=== PATIENT | male | born 1950 | race Caucasian/White ===

== ENCOUNTER 2018-05-23 13:33 | Emergency (ER) | payer OTHER, BC ==
[~2018-05-23] VITALS: Ht 175.3 cm; Wt 83.9 kg
[2018-05-23 13:33] VITALS: BP_SYST 145
--- NOTE | 2018-05-23 13:33 | NUR ---
BROUGHT BACK TO BED #8 AND TRIAGED. REPORT GIVEN TO BARRERA
--- NOTE | 2018-05-23 14:34 | NUR ---
Patient is awake, alert, and oriented x4. Patient states he thought he was having a stroke, numbness and tinglling on the right side of his head. He denies previous medical history. No signs or symptoms of distress noted.
--- NOTE | 2018-05-23 14:45 | NUR ---
ER Dr. Garrido at bedside examining patient.
[2018-05-23 14:49] LABS: BASOPHILS % (AUTO) 1.2 % (0.0-2.0); EOSINOPHILS # (AUTO) 0.1 K/uL (0.0-0.4); EOSINOPHILS % (AUTO) 1.8 % (0.0-4.0); LYMPHOCYTES # (AUTO) 1.2 K/uL (1.0-5.5); LYMPHOCYTES % (AUTO) 30.8 % (20.5-51.5); MEAN CORPUSCULAR HEMOGLOBIN 29 pg (27-31); MEAN CORPUSCULAR HGB CONC 32 % (32-36); MEAN CORPUSCULAR VOLUME 92 fL (79.0-98.0); MONOCYTES # (AUTO) 0.3 K/uL (0.0-1.0); NEUTROPHILS # (AUTO) 2.3 K/uL (1.8-7.7); NEUTROPHILS % (AUTO) 59.2 % (40.0-70.0); PLATELET COUNT (AUTO) 156 K/uL (130-430); RED BLOOD CELL COUNT(AUTO) 4.44 MIL/uL (4.2-6.2); RED CELL DISTRIBUTION WIDTH 12.9 % (9.0-15.0); WHITE BLOOD COUNT (AUTO) 3.9 K/uL (4.8-10.8)
--- NOTE | 2018-05-23 14:54 | NUR ---
Patient transported to radiology via wheelchair, accompanied by kennel technician.
[2018-05-23 14:57] LABS: ANION GAP 4 (5-15); CALCIUM 8.7 mg/dL (8.4-11.0); CHLORIDE 110 mmol/L (98-107); CREATININE 0.89 mg/dL (0.55-1.30); GLUCOSE 124 mg/dL (70-99); POTASSIUM 3.8 mmol/L (3.5-5.1); SODIUM SERUM 142 mmol/L (136-145); UREA NITROGEN, BLOOD 11 mg/dL (8-21)
[2018-05-23 14:58] LABS: PROTHROMBIN TIME 9.9 SECS (9.5-12.5)
[2018-05-23 15:01] LABS: GFR AFRICAN AMERICAN 110 mL/min (>90)
--- NOTE | 2018-05-23 15:01 | NUR ---
Returned from radiology, back to [facility].
--- NOTE | 2018-05-23 15:10 | NUR ---
Assumed care of patient, patient resting quietly in no acute distress. Awaiting results and dispo.
[2018-05-23 15:14] LABS: ALANINE AMINOTRANSFERASE 23 U/L (12-78); ALBUMIN 3.5 g/dL (3.4-4.8); ALCOHOL, BLOOD < 3 mg/dL (<10); ASPARTATE AMINOTRANSFERASE 15 U/L (10-37); FREE T4 (FREE THYROXINE) 0.5 ng/dL (0.6-1.6); TOTAL BILIRUBIN 0.6 mg/dL (0.0-1.0)
[2018-05-23 15:21] LABS: BILIRUBIN,URINE NEGATIVE (NEGATIVE); BLOOD, URINE NEGATIVE (NEGATIVE); CLARITY/URINE CLEAR (CLEAR); COLOR,URINE YELLOW (YELLOW); GLUCOSE,URINE NEGATIVE (NEGATIVE); KETONES,URINE NEGATIVE (NEGATIVE); LEUKOCYTE ESTERASE ,URINE NEGATIVE (NEGATIVE); NITRITE, URINE NEGATIVE (NEGATIVE); PROTEIN URINE NEGATIVE (NEGATIVE); UROBILINOGEN,URINE 0.2 (0.2-1.0)
[2018-05-23 15:32] LABS: BARBITURATE, URINE NEGATIVE (NEG <=200); BENZODIAZEPINE, URINE NEGATIVE (NEG <=150); CANNABINOID, URINE NEGATIVE (NEG <=50); COCAINE, URINE NEGATIVE (NEG <=150); METHAMPHETAMINES SCREEN,URINE NEGATIVE (NEG <=500); OPIATE, URINE NEGATIVE (NEG <=100); PHENCYCLIDINE SCREEN,URINE NEGATIVE (NEG <=25); UR TRICYCLIC ANTIDEPRESSANTS NEGATIVE (NEG <=300); URINE AMPHETAMINE NEGATIVE (NEG <=500); URINE METHADONE NEGATIVE (NEG <=200); URINE OXYCODONE SCREEN NEGATIVE (NEG <=100); URINE PROPOXYPHENE SCREEN NEGATIVE (NEG <=300)
[2018-05-23] MEDS ORDERED: ASPIRIN 81 MG TAB.CHEW PO ONE (15:45)
--- NOTE | 2018-05-23 15:45 | NUR ---
Dr Garrido at bedside speaking with patient/family regarding results and plan of care, questions answered by Dr Garrido.
[2018-05-23] MEDS ORDERED: DIPHENHYDRAMINE HCL 12.5 MG/5 ML UDC PO ONE (16:00)
[2018-05-23 16:14] VITALS: BP_SYST 136
== END 2018-05-23 16:14 | disposition home or self-care (01) ==
LOC: SED 13:33
DX: R20.2 Paresthesia of skin (principal); R03.0 Elevated blood-pressure reading, without diagnosis of hypertension
CPT/HCPCS: 36415; 70450; 71045; 80053; 80307; 81003; 82140; 83605; 83880; 84439; 84484; 85025; 85610; 87040; 93005; 99285; G0482

== ENCOUNTER 2018-11-15 17:21 | Emergency (ER) | payer OTHER, BC ==
[~2018-11-15] VITALS: Ht 175.3 cm; Wt 81.6 kg
[2018-11-15 17:26] VITALS: BP_SYST 138
[2018-11-15] MEDS ORDERED: ASPIRIN 325 MG TABLET PO ONE (18:15)
[2018-11-15] MEDS: NITROGLYCERIN 0.4 MG TAB.SUBL SL ONE ×2 (18:51→18:53)
[2018-11-15 19:45] LABS: CALCIUM 9.6 mg/dL (8.4-11.0); CREATININE 0.92 mg/dL (0.55-1.30); POTASSIUM 3.9 mmol/L (3.5-5.1)
[2018-11-15 19:47] LABS: PROTHROMBIN TIME 9.9 SECS (9.5-12.5)
[2018-11-15 19:50] LABS: HEMATOCRIT 39.8 % (36-54); HEMOGLOBIN 13.7 g/dL (14.0-18.0); MEAN CORPUSCULAR HEMOGLOBIN 31 pg (27-31); MEAN CORPUSCULAR HGB CONC 34 % (32-36); MEAN CORPUSCULAR VOLUME 91 fL (79.0-98.0); RED CELL DISTRIBUTION WIDTH 13.6 % (9.0-15.0); WHITE BLOOD COUNT (AUTO) 4.8 K/uL (4.8-10.8)
[2018-11-15 19:51] LABS: ALBUMIN 3.7 g/dL (3.4-4.8); BASOPHILS % (AUTO) 0.7 % (0.0-2.0); EOSINOPHILS % (AUTO) 0.8 % (0.0-4.0); LYMPHOCYTES # (AUTO) 1.1 K/uL (1.0-5.5); LYMPHOCYTES % (AUTO) 22.9 % (20.5-51.5); MONOCYTES # (AUTO) 0.4 K/uL (0.0-1.0); MONOCYTES % (AUTO) 7.4 % (1.7-9.3); NEUTROPHILS # (AUTO) 3.3 K/uL (1.8-7.7); NEUTROPHILS % (AUTO) 68.2 % (40.0-70.0); PLATELET COUNT (AUTO) 196 K/uL (130-430); TOTAL BILIRUBIN 0.6 mg/dL (0.0-1.0)
[2018-11-15 20:46] LABS: BILIRUBIN,URINE NEGATIVE (NEGATIVE); BLOOD, URINE NEGATIVE (NEGATIVE); CLARITY/URINE CLEAR (CLEAR); COLOR,URINE YELLOW (YELLOW); GLUCOSE,URINE NEGATIVE (NEGATIVE); KETONES,URINE 2+ (NEGATIVE); LEUKOCYTE ESTERASE ,URINE NEGATIVE (NEGATIVE); NITRITE, URINE NEGATIVE (NEGATIVE); PROTEIN URINE NEGATIVE (NEGATIVE); UROBILINOGEN,URINE 0.2 (0.2-1.0)
[2018-11-15 23:20] VITALS: BP_SYST 120
== END 2018-11-15 23:20 | disposition home or self-care (01) ==
LOC: SED 17:21
DX: R07.89 Other chest pain (principal)
CPT/HCPCS: 36415; 71045; 80053; 81003; 82550-TC; 83880; 84484; 85025; 85379; 85610-TC; 93005; 99284

== ENCOUNTER 2021-06-18 17:36 | Emergency (ER) | payer OTHER, BC ==
[~2021-06-18] VITALS: Ht 175.3 cm; Wt 80.7 kg
[2021-06-18 17:38] VITALS: BP_SYST 150
[2021-06-18] MEDS ORDERED: ASPIRIN 81 MG TAB.CHEW PO ONE (18:00)
--- NOTE | 2021-06-18 18:00 | NUR ---
Patient to ER bed 3 to gown for evaluation. Side rails up.
--- NOTE | 2021-06-18 18:02 | NUR ---
ER at bedside examining patient.
--- NOTE | 2021-06-18 18:22 | NUR ---
Blood for labwork drawn from cylindrical mixer. Patient tolerated well
--- NOTE | 2021-06-18 18:30 | NUR ---
PT TOOK ASA 162MG AFTER INITIAL REFUSAL.
--- NOTE | 2021-06-18 18:41 | NUR ---
Dr. Noyola speaking to patient regarding plan of care.
[2021-06-18 18:56] LABS: ANION GAP 6 (5-15); CALCIUM 8.8 mg/dL (8.4-11.0); CHLORIDE 111 mmol/L (98-107); CREATININE 1.03 mg/dL (0.55-1.30); GLUCOSE 98 mg/dL (70-99); POTASSIUM 4.3 mmol/L (3.5-5.1); SODIUM SERUM 144 mmol/L (136-145); UREA NITROGEN, BLOOD 16 mg/dL (8-21)
[2021-06-18 19:01] LABS: GFR AFRICAN AMERICAN 92 mL/min (>90)
--- NOTE | 2021-06-18 19:10 | NUR ---
Patient does not wish to proceed with medical care recommended by . Patient given information related to possible complications, up to and including , which could occur as a result of leaving hospital at this time. Patient verbalizes understanding of risks involved leaving against medical advice. Patient has signed AMA form.
[2021-06-18 19:12] VITALS: BP_SYST 150
== END 2021-06-18 19:10 | disposition left against medical advice (07) ==
LOC: SED 17:36
DX: R07.89 Other chest pain (principal); I10 Essential (primary) hypertension
CPT/HCPCS: 36415; 71045; 80048; 84484; 93005; 99285

== ENCOUNTER 2022-09-05 23:36 | Emergency (ER) | payer BC, OTHER ==
[~2022-09-05] VITALS: Ht 175.3 cm; Wt 77.1 kg
[2022-09-05 23:54] VITALS: BP_SYST 130
[2022-09-06 00:28] LABS: BASOPHILS % (AUTO) 0.7 % (0.0-2.0); EOSINOPHILS % (AUTO) 0.4 % (0.0-4.0); HEMATOCRIT 37.7 % (36-54); HEMOGLOBIN 12.8 g/dL (14.0-18.0); LYMPHOCYTES # (AUTO) 1.1 K/uL (1.0-5.5); LYMPHOCYTES % (AUTO) 25.4 % (20.5-51.5); MEAN CORPUSCULAR HEMOGLOBIN 31 pg (27-31); MEAN CORPUSCULAR HGB CONC 34 % (32-36); MEAN CORPUSCULAR VOLUME 91 fL (79.0-98.0); MONOCYTES # (AUTO) 0.3 K/uL (0.0-1.0); MONOCYTES % (AUTO) 8.2 % (1.7-9.3); NEUTROPHILS # (AUTO) 2.7 K/uL (1.8-7.7); NEUTROPHILS % (AUTO) 65.3 % (40.0-70.0); PLATELET COUNT (AUTO) 162 K/uL (130-430); RED BLOOD CELL COUNT(AUTO) 4.15 MIL/uL (4.2-6.2); RED CELL DISTRIBUTION WIDTH 13.8 % (9.0-15.0); WHITE BLOOD COUNT (AUTO) 4.1 K/uL (4.8-10.8)
[2022-09-06] MEDS ORDERED: NACL 0.9% 1,000 ML IV ONE (00:30)
[2022-09-06 00:50] LABS: ALANINE AMINOTRANSFERASE 22 U/L (12-78); ALBUMIN 3.7 g/dL (3.4-4.8); ANION GAP 8 (5-15); ASPARTATE AMINOTRANSFERASE 23 U/L (10-37); CALCIUM 9.3 mg/dL (8.4-11.0); CHLORIDE 105 mmol/L (98-107); CREATININE 0.88 mg/dL (0.55-1.30); GLUCOSE 105 mg/dL (70-99); TOTAL BILIRUBIN 0.7 mg/dL (0.0-1.0); UREA NITROGEN, BLOOD 14 mg/dL (8-21)
[2022-09-06 00:51] LABS: GFR AFRICAN AMERICAN 110 mL/min (>90)
[2022-09-06] MEDS ORDERED: LIDOCAINE PATCH 5% 1 EA TP ONE (01:00)
[2022-09-06 01:30] LABS: BILIRUBIN,URINE NEGATIVE (NEGATIVE); BLOOD, URINE NEGATIVE (NEGATIVE); CLARITY/URINE CLEAR (CLEAR); COLOR,URINE YELLOW (YELLOW); GLUCOSE,URINE NEGATIVE (NEGATIVE); KETONES,URINE NEGATIVE (NEGATIVE); LEUKOCYTE ESTERASE ,URINE NEGATIVE (NEGATIVE); NITRITE, URINE NEGATIVE (NEGATIVE); PROTEIN URINE NEGATIVE (NEGATIVE); UROBILINOGEN,URINE 0.2 (0.2-1.0)
[2022-09-06] MEDS ORDERED: LIDO1ADH63 TP (03:00)
[2022-09-06 03:13] VITALS: BP_SYST 148
== END 2022-09-06 03:11 | disposition home or self-care (01) ==
LOC: SED 23:36
DX: T75.4XXA Electrocution, initial encounter (principal); R07.89 Other chest pain; Z79.899 Other long term (current) drug therapy
CPT/HCPCS: 99285; 71045; 80053; 82550; 83880; 85025; 84484; 36415; 93005; 81003; 96360; J7030

== ENCOUNTER 2023-08-19 20:26 | Emergency (ER) | payer OTHER, BC ==
[~2023-08-19 20:26] MED LIST: LIDO1ADH63 TP
== END 2023-08-19 21:50 | disposition left against medical advice (07) ==
LOC: SED 20:26
DX: Z76.0 Encounter for issue of repeat prescription (principal); Z53.21 Procedure and treatment not carried out due to patient leaving prior to being seen by health care provider

== ENCOUNTER 2024-03-28 04:35 | Emergency (ER) | payer OTHER, BC ==
[~2024-03-28] VITALS: Ht 175.3 cm; Wt 86.2 kg
[2024-03-28 04:43] VITALS: BP_SYST 178; PULSE 73; RESP 18; TEMP 97.3; O2SAT 96
[2024-03-28] MEDS ORDERED: iohexoL 350 mgI/mL, 100 ML INFUS..BTL IV ONE (05:07)
[2024-03-28 05:20] LABS: BASOPHILS # (AUTO) 0.1 K/uL (0.0-0.2); BASOPHILS % (AUTO) 0.9 % (0.0-2.0); EOSINOPHILS # (AUTO) 0.2 K/uL (0.0-0.4); EOSINOPHILS % (AUTO) 2.3 % (0.0-4.0); HEMATOCRIT 39.8 % (36-54); HEMOGLOBIN 13.6 g/dL (14.0-18.0); LYMPHOCYTES # (AUTO) 2.9 K/uL (1.0-5.5); MEAN CORPUSCULAR HEMOGLOBIN 31 pg (27-31); MEAN CORPUSCULAR HGB CONC 34 % (32-36); MEAN CORPUSCULAR VOLUME 90 fL (79.0-98.0); MONOCYTES # (AUTO) 0.5 K/uL (0.0-1.0); MONOCYTES % (AUTO) 7.2 % (1.7-9.3); NEUTROPHILS # (AUTO) 3.3 K/uL (1.8-7.7); NEUTROPHILS % (AUTO) 47.6 % (40.0-70.0); PLATELET COUNT (AUTO) 212 K/uL (130-430); WHITE BLOOD COUNT (AUTO) 6.8 K/uL (4.8-10.8)
[2024-03-28 05:58] LABS: ANION GAP 6 (5-15); CALCIUM 9.1 mg/dL (8.4-11.0); CARBON DIOXIDE 30 mmol/L (23-29); CHLORIDE 107 mmol/L (98-107); CREATININE 1.03 mg/dL (0.55-1.30); GLUCOSE 98 mg/dL (74-106); POTASSIUM 3.6 mmol/L (3.5-5.1); SODIUM SERUM 143 mmol/L (136-145); UREA NITROGEN, BLOOD 18 mg/dL (8-21)
[2024-03-28] MEDS: KETOROLAC TROMETHAMINE 30 MG VIAL IVP ONE (07:07)
[2024-03-28 07:21] VITALS: BP_SYST 152; PULSE 75; RESP 20; TEMP 97.4; O2SAT 96
== END 2024-03-28 07:21 | disposition home or self-care (01) ==
LOC: SED 04:35
DX: R51.9 Headache, unspecified (principal); R20.2 Paresthesia of skin
CPT/HCPCS: 99285; 70496; 96374; 71045; 80048; 85025; 84484; 36415; 70498; 70450; Q9967; J1885